=== PATIENT | male | born 1935 | race Caucasian/White ===

== ENCOUNTER 2017-11-20 18:36 | Inpatient (IN) | payer MEDICARE, BC ==
[~2017-11-20] VITALS: Ht 182.9 cm; Wt 79.6 kg
[2017-11-20] VITALS (52 sets, daily range): BP systolic 178; BP diastolic 86; PULSE 72; TEMP 97.8; O2SAT 94–99
[2017-11-20 19:32] LABS: BASO % 0.5 % (0.0-2.0); EOS # 0.1 (0.0-0.7); EOS % 1.2 % (0-4.0); GRAN # 2.4 (1.4-6.5); GRAN % 56.9 % (42.2-75.2); HEMATOCRIT 39.6 % (42.0-52.0); HEMOGLOBIN 13.5 g/dl (13.5-18.0); LYMPH # 1.4 (1.2-3.4); LYMPH % 32.7 % (20.0-51.0); MEAN CELL VOLUME 91 fl (80.0-100.0); MEAN CORPUSCULAR HEMOGLOBIN 31 pg (27.0-31.0); MEAN CORPUSCULAR HGB CONC 34 g/dl (33.0-37.0); MEAN PLATELET VOLUME 9.8 fl (7.4-10.4); MONO # 0.4 (0.1-0.6); MONO % 8.5 % (1.7-9.3); PLATELET COUNT 163 K/mm3 (130-400); RED BLOOD COUNT 4.34 M/mm3 (4.20-5.60); REDCELL DISTRIBUTION WIDTH-CV 12.6 % (11.5-14.5)
[2017-11-20 19:46] LABS: ALANINE AMINOTRANSFERASE 29 U/L (21-72); ALBUMIN 3.9 gm/dL (3.5-5.0); ALKALINE PHOSPHATASE 92 U/L (50-136); ANION GAP 10 mmol/L (7-16); AST,SGOT 20 U/L (15-37); BILIRUBIN,TOTAL 1.2 mg/dL (0.0-1.0); BLOOD UREA NITROGEN 23 mg/dL (9-20); C-REACTIVE PROTEIN 0.6 mg/dL (0.0-0.9); CALCIUM 9.4 mg/dL (8.4-10.2); CARBON DIOXIDE 29 mmol/L (22-30); CHLORIDE 98 mmol/L (98-107); CREATININE, serum 0.82 mg/dL (0.66-1.25); GLUCOSE 85 mg/dL (74-106); POTASSIUM 3.3 mmol/L (3.4-5.0); SODIUM 137 mmol/L (137-145); TOTAL PROTEIN 7.2 gm/dL (6.4-8.2)
[2017-11-20 20:05] LABS: TROPONIN-I < 0.012 ng/mL (0.000-0.034)
[2017-11-20 20:30] LABS: ACETAMINOPHEN < 10 ug/mL (10-30); ALCOHOL(ethanol),MEDICAL < 10 mg/dL
[2017-11-20 20:35] LABS: COLLECTION METHOD CLEAN CATCH
[2017-11-20] MEDS ORDERED: KLONOPIN WAFERS1 MG PO (20:39)
[2017-11-20] MEDS ORDERED: CITRACAL + D CA1 TAB PO (20:39)
[2017-11-20] MEDS ORDERED: ELIQUIS 5MG PO (20:40)
[2017-11-20] MEDS ORDERED: HCTZ 25MG TAB25 MG PO (20:40)
[2017-11-20] MEDS ORDERED: LUTEIN20 M1 PO (20:41)
[2017-11-20] MEDS ORDERED: COZAAR 50MG50 MG/TAB PO (20:41)
[2017-11-20] MEDS ORDERED: LEVOXYL0.075 MG PO (20:41)
[2017-11-20] MEDS ORDERED: PAXIL 10MG10 MG PO (20:42)
[2017-11-20] MEDS ORDERED: MIRALAX PA17 GM/Dose PO (20:43)
[2017-11-20] MEDS ORDERED: MULTIPLE VITAMI1 CAP PO (20:43)
[2017-11-20 20:48] LABS: AMORPHOUS CRYSTAL Present /uL; MUCOUS Present /lpf; PH 8 (5-8); SQUAMOUS EPITHELIAL 0-2 /hpf; URINE APPEARANCE Hazy; URINE BACTERIA None Seen /hpf; URINE BILIRUBIN Negative (NEGATIVE); URINE BLOOD Negative (NEGATIVE); URINE COLOR Yellow; URINE GLUCOSE Negative (NEGATIVE); URINE KETONE Negative (NEGATIVE); URINE LEUKOCYTE ESTERASE Negative (NEGATIVE); URINE NITRATE Negative (NEGATIVE); URINE PROTEIN(semi-quant) Negative (NEGATIVE); URINE RBC 0-2 /hpf; URINE UROBILINOGEN Negative (NEGATIVE)
[2017-11-20 20:49] LABS: TRICYCLIC ANTIDEPRESS URINE NEGATIVE
[2017-11-21] VITALS (350 sets, daily range): BP systolic 91–178; BP diastolic 40–95; PULSE 61–890; TEMP 97.3–98.2; O2SAT 89–100
[2017-11-21 05:27] LABS: BASO % 0.5 % (0.0-2.0); EOS # 0.1 (0.0-0.7); EOS % 1.9 % (0-4.0); GRAN % 47.2 % (42.2-75.2); HEMOGLOBIN 11.8 g/dl (13.5-18.0); LYMPH # 1.7 (1.2-3.4); LYMPH % 40.2 % (20.0-51.0); MEAN CELL VOLUME 91 fl (80.0-100.0); MEAN CORPUSCULAR HEMOGLOBIN 31 pg (27.0-31.0); MEAN CORPUSCULAR HGB CONC 34 g/dl (33.0-37.0); MONO # 0.4 (0.1-0.6); PLATELET COUNT 148 K/mm3 (130-400); RED BLOOD COUNT 3.82 M/mm3 (4.20-5.60); REDCELL DISTRIBUTION WIDTH-CV 12.8 % (11.5-14.5)
[2017-11-21 05:28] LABS: HEMATOCRIT 34.7 % (42.0-52.0)
[2017-11-21 05:50] LABS: ANION GAP 7 mmol/L (7-16); BLOOD UREA NITROGEN 24 mg/dL (9-20); CALCIUM 8.9 mg/dL (8.4-10.2); CARBON DIOXIDE 34 mmol/L (22-30); CHLORIDE 99 mmol/L (98-107); CREATININE, serum 0.85 mg/dL (0.66-1.25); GLUCOSE 93 mg/dL (74-106); SODIUM 140 mmol/L (137-145)
[2017-11-21 05:51] LABS: POTASSIUM 2.9 mmol/L (3.4-5.0)
[2017-11-21 06:21] LABS: CHOLESTEROL 119 mg/dL (120-200); CHOLESTEROL RISK RATIO 3.7; HDL CHOLESTEROL 32 mg/dL; LDL CHOLESTEROL 72 mg/dL; TRIGLYCERIDE 76 mg/dL
[2017-11-21 06:41] LABS: TROPONIN-I < 0.012 ng/mL (0.000-0.034)
[2017-11-22] VITALS (9 sets, daily range): BP systolic 115–162; BP diastolic 59–75; PULSE 63–86; TEMP 97–98
[2017-11-22 06:08] LABS: BASO % 0.8 % (0.0-2.0); EOS # 0.1 (0.0-0.7); EOS % 2.6 % (0-4.0); GRAN # 1.5 (1.4-6.5); GRAN % 38.8 % (42.2-75.2); LYMPH # 1.9 (1.2-3.4); LYMPH % 48.6 % (20.0-51.0); MEAN CELL VOLUME 92 fl (80.0-100.0); MEAN CORPUSCULAR HEMOGLOBIN 31 pg (27.0-31.0); MEAN CORPUSCULAR HGB CONC 34 g/dl (33.0-37.0); MEAN PLATELET VOLUME 10.2 fl (7.4-10.4); MONO # 0.4 (0.1-0.6); MONO % 9.2 % (1.7-9.3); PLATELET COUNT 142 K/mm3 (130-400); RED BLOOD COUNT 3.89 M/mm3 (4.20-5.60); REDCELL DISTRIBUTION WIDTH-CV 12.8 % (11.5-14.5)
[2017-11-22 06:26] LABS: CALCIUM 8.7 mg/dL (8.4-10.2); CREATININE, serum 0.77 mg/dL (0.66-1.25); POTASSIUM 3.2 mmol/L (3.4-5.0)
[2017-11-22 06:30] LABS: HEMATOCRIT 35.8 % (42.0-52.0)
[2017-11-23] VITALS (16 sets, daily range): BP systolic 104–194; BP diastolic 50–79; PULSE 55–68; TEMP 97.9–98.7
[2017-11-23 06:22] LABS: HEMOGLOBIN 12.5 g/dl (13.5-18.0); MEAN CELL VOLUME 90 fl (80.0-100.0); MEAN CORPUSCULAR HEMOGLOBIN 31 pg (27.0-31.0); MEAN CORPUSCULAR HGB CONC 34 g/dl (33.0-37.0); MEAN PLATELET VOLUME 10.6 fl (7.4-10.4); PLATELET COUNT 150 K/mm3 (130-400); RED BLOOD COUNT 4.07 M/mm3 (4.20-5.60); REDCELL DISTRIBUTION WIDTH-CV 12.8 % (11.5-14.5)
[2017-11-23 06:25] LABS: HEMATOCRIT 36.6 % (42.0-52.0)
[2017-11-23 06:32] LABS: CALCIUM 8.8 mg/dL (8.4-10.2); CREATININE, serum 0.8 mg/dL (0.66-1.25); POTASSIUM 3.3 mmol/L (3.4-5.0)
[2017-11-23 06:38] LABS: INR 1.4 (0.8-3.0); PROTHROMBIN TIME 15.4 SECONDS (9.7-12.8)
[2017-11-23 06:40] LABS: PARTIAL THROMBOPLASTIN TIME 41.9 SECONDS (26.0-37.0)
[2017-11-24 06:52] LABS: CALCIUM 8.8 mg/dL (8.4-10.2); CREATININE, serum 0.87 mg/dL (0.66-1.25); MAGNESIUM 1.9 mg/dL (1.6-2.3); POTASSIUM 3.7 mmol/L (3.4-5.0)
[2017-11-24 08:00] VITALS: BP 151/64; PULSE 61; TEMP 97.6
[2017-11-24] MEDS ORDERED: TOPROL XL 50MG50 MG PO (11:10)
[2017-11-24] MEDS ORDERED: COZAAR100 MG PO (11:11)
[2017-11-24] MEDS ORDERED: ASPIRIN E.C. 8181 MG PO (11:11)
[2017-11-24 12:04] VITALS: BP 113/50; PULSE 66; TEMP 98
== END 2017-11-24 14:25 | disposition home or self-care (01) | DRG 287 ==
LOC: COL.ER 18:36 → ICU 20:35 → MEDICAL 20:35
PROVIDERS: Emergency Medicine; Family Medicine; Hospitalist; Nurse Practitioner
PROC: B2111ZZ Fluoroscopy of Multiple Coronary Arteries using Low Osmolar Contrast (ICD-10-PCS; principal; 2017-11-23)
PROC: B2151ZZ Fluoroscopy of Left Heart using Low Osmolar Contrast (ICD-10-PCS; 2017-11-23)
PROC: 4A023N7 Measurement of Cardiac Sampling and Pressure, Left Heart, Percutaneous Approach (ICD-10-PCS; 2017-11-23)
DX: R07.89 Other chest pain (principal); E44.0 Moderate protein-calorie malnutrition; I10 Essential (primary) hypertension; E87.6 Hypokalemia; F41.8 Other specified anxiety disorders; F41.0 Panic disorder [episodic paroxysmal anxiety]; I08.0 Rheumatic disorders of both mitral and aortic valves; R25.1 Tremor, unspecified; Z87.891 Personal history of nicotine dependence; Z86.711 Personal history of pulmonary embolism; Z79.01 Long term (current) use of anticoagulants; Z86.718 Personal history of other venous thrombosis and embolism
CPT/HCPCS: OP; 99223-AI; 99232-AI; 99239; A9502; C1760; C1769; C1894; G0378; G8987-GO; G8988-GO; J1644; J1650; J2060; J2250; J2550; J2785; J3010; J3480

== ENCOUNTER 2017-11-26 09:33 | Emergency (ER) | payer MEDICARE, BC ==
[~2017-11-26] VITALS: Ht 182.9 cm; Wt 75.7 kg
[~2017-11-26 09:33] MED LIST: ASPIRIN E.C. 8181 MG PO; CITRACAL + D CA1 TAB PO; COZAAR 50MG50 MG/TAB PO; COZAAR100 MG PO; ELIQUIS 5MG PO; HCTZ 25MG TAB25 MG PO; KLONOPIN WAFERS1 MG PO; LEVOXYL0.075 MG PO; LUTEIN20 M1 PO; MIRALAX PA17 GM/Dose PO; MULTIPLE VITAMI1 CAP PO; PAXIL 10MG10 MG PO; TOPROL XL 50MG50 MG PO
[2017-11-26 10:11] LABS: BASO % 0.4 % (0.0-2.0); EOS # 0.2 (0.0-0.7); EOS % 3.8 % (0-4.0); GRAN # 2.4 (1.4-6.5); GRAN % 53.4 % (42.2-75.2); HEMATOCRIT 39.3 % (42.0-52.0); HEMOGLOBIN 13.4 g/dl (13.5-18.0); LYMPH # 1.5 (1.2-3.4); LYMPH % 32.4 % (20.0-51.0); MEAN CELL VOLUME 91 fl (80.0-100.0); MEAN CORPUSCULAR HEMOGLOBIN 31 pg (27.0-31.0); MEAN CORPUSCULAR HGB CONC 34 g/dl (33.0-37.0); MEAN PLATELET VOLUME 10.3 fl (7.4-10.4); MONO # 0.4 (0.1-0.6); MONO % 9.8 % (1.7-9.3); PLATELET COUNT 156 K/mm3 (130-400); RED BLOOD COUNT 4.33 M/mm3 (4.20-5.60); REDCELL DISTRIBUTION WIDTH-CV 12.7 % (11.5-14.5)
[2017-11-26 10:15] LABS: INR 1.3 (0.8-3.0); PROTHROMBIN TIME 15.2 SECONDS (9.7-12.8)
[2017-11-26 10:18] LABS: BILIRUBIN,TOTAL 1.3 mg/dL (0.0-1.0); CALCIUM 9.3 mg/dL (8.4-10.2); CREATININE, serum 0.84 mg/dL (0.66-1.25); POTASSIUM 3.3 mmol/L (3.4-5.0); TOTAL PROTEIN 7.2 gm/dL (6.4-8.2)
[2017-11-26 10:33] LABS: COLLECTION METHOD CLEAN CATCH
[2017-11-26 10:39] LABS: PH 8 (5-8); SQUAMOUS EPITHELIAL None Seen /hpf; URINE APPEARANCE Clear; URINE BACTERIA None Seen /hpf; URINE BILIRUBIN Negative (NEGATIVE); URINE BLOOD Negative (NEGATIVE); URINE COLOR Yellow; URINE GLUCOSE Negative (NEGATIVE); URINE KETONE Negative (NEGATIVE); URINE LEUKOCYTE ESTERASE Negative (NEGATIVE); URINE NITRATE Negative (NEGATIVE); URINE PROTEIN(semi-quant) Negative (NEGATIVE); URINE RBC 0-2 /hpf; URINE UROBILINOGEN Negative (NEGATIVE)
[2017-11-26] MEDS ORDERED: LEXAPRO 5MG5 MG PO (11:13)
[2017-11-26] MEDS ORDERED: ATARAX 10MG10 MG/TAB PO (11:14)
[2017-11-26 12:12] VITALS: BP 145/78; PULSE 70
== END 2017-11-26 12:12 | disposition other institution (70) ==
LOC: COL.ER 09:33
PROVIDERS: Emergency Medicine
DX: S06.5X9A Traumatic subdural hemorrhage with loss of consciousness of unspecified duration, initial encounter (principal); Z79.01 Long term (current) use of anticoagulants; Z79.82 Long term (current) use of aspirin; Z98.890 Other specified postprocedural states; W19.XXXA Unspecified fall, initial encounter
CPT/HCPCS: C9132; J2060; J2765; J3010; J7030; J7050